=== PATIENT | female | born 1970 | race Two or more races ===

== ENCOUNTER 2017-03-03 17:34 | Emergency (ER) | payer OTHER ==
[2017-03-03 17:46] VITALS: BP 132/85
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
[2017-03-03] MEDS ORDERED: CYCLOBENZAPRINE HCL 10 MG TABLET PO ONE (18:38)
[2017-03-03] MEDS ORDERED: IBUPROFEN 800 MG TABLET PO ONE (18:38)
== END 2017-03-03 19:29 | disposition home or self-care (01) ==
LOC: ER 17:34
DX: M79.605 Pain in left leg (principal); V87.7XXA Person injured in collision between other specified motor vehicles (traffic), initial encounter
CPT/HCPCS: 99283

== ENCOUNTER 2018-01-12 14:20 | Emergency (ER) | payer OTHER ==
[2018-01-12] MEDS ORDERED: ONDANSETRON ODT 4 MG TAB (6 TAB/ER DISP) PO PRN (15:09)
--- NOTE | 2018-01-12 15:11 | ER Document Report ---
ED GI/ - General Chief Complaint: Abdominal Pain Stated Complaint: ABDOMINAL PAIN Time Seen by Provider: 01/12/18 15:07 Notes: Chief complaint: abdominal pain: History of complain:( obtained from----patient) 47 years old female presents today with mid abdominal pain for the last couple of days associated with nausea and vomited a few times and had watery brown stool on and off. But has a history of constipation 2. She did not have any menstrual cycle for the last 2 months. With a history of fibroids. Denies any dysuria frequency urgency. Denies any other constitutional symptoms Onset: As above Duration: As above Severity: Mild to moderate Quality: Dull Context: As above Exacerbating factor and relieving factors: As above REVIEW OF SYSTEMS: CONSTITUTIONAL : Denies fever, chills, or sweats. Denies recent illness. EENT: Denies eye, ear, throat, or mouth pain or symptoms. Denies nasal or sinus congestion or discharge. Denies throat, tongue, or mouth swelling or difficulty swallowing. CARDIOVASCULAR: Denies chest pain. Denies palpitations or racing or irregular heart beat. Denies ankle edema. RESPIRATORY: Denies cough, cold, or chest congestion. Denies shortness of breath, difficulty breathing, or wheezing. GASTROINTESTINAL: Denies distention. Denies nausea, vomiting, or diarrhea. Denies blood in vomitus, stools, or per rectum. Denies black, tarry stools. Denies constipation. GENITOURINARY: Denies difficulty urinating, painful urination, burning, frequency, blood in urine, or discharge. FEMALE GENITOURINARY: Denies vaginal bleeding, heavy or abnormal periods, irregular periods. Denies vaginal discharge or odor. MUSCULOSKELETAL: Denies back or neck pain or stiffness. Denies joint pain or swelling. SKIN: Denies rash, lesions or sores. HEMATOLOGIC : Denies easy bruising or bleeding. LYMPHATIC: Denies swollen, enlarged glands. NEUROLOGICAL: Denies confusion or altered mental status. Denies passing out or loss of consciousness. Denies dizziness or lightheadedness. Denies headache. Denies weakness or paralysis or loss of use of either side. Denies problems with gait or speech. Denies sensory loss, numbness, or tingling. Denies seizures. PSYCHIATRIC: Denies anxiety or stress. Denies depression, suicidal ideation, or homicidal ideation. ALL OTHER SYSTEMS REVIEWED AND NEGATIVE. PHYSICAL EXAMINATION: GENERAL: Well-appearing, well-nourished and in no acute distress. HEAD: Atraumatic, normocephalic. EYES: Pupils equal round and reactive to light, extraocular movements intact, conjunctiva are normal. ENT: Nares patent, oropharynx clear without exudates. Moist mucous membranes. NECK: Normal range of motion, supple without lymphadenopathy LUNGS: Breath sounds clear to auscultation bilaterally and equal. No wheezes rales or rhonchi. HEART: Regular rate and rhythm without murmurs ABDOMEN: Soft, nontender, nondistended abdomen. No guarding, no rebound. No masses appreciated. Female : deferred Musculoskeletal: Normal range of motion, no pitting or edema. No cyanosis. NEUROLOGICAL: Cranial nerves grossly intact. Normal speech, normal gait. Normal sensory, motor exams PSYCH: Normal mood, normal affect. SKIN: Warm, Dry, normal turgor, no rashes or lesions noted. Dictation was performed using [employer] voice recognition software TRAVEL OUTSIDE OF THE [place] IN LAST 30 DAYS: No - HPI Notes: 01/12/18 15:11 Dictated - Related Data Allergies/Adverse Reactions: No Known Allergies Allergy (Verified 01/12/18 14:21) Past Medical History - General Information source: Patient - Social History Smoking Status: Former Smoker Chew tobacco use (# tins/day): No Frequency of alcohol use: None Drug Abuse: None Family History: Reviewed & Not Pertinent Patient has suicidal ideation: No Patient has homicidal ideation: No Renal/ Medical History: Denies: Hx Peritoneal Dialysis Review of Systems - Review of Systems Notes: Dictated Physical Exam - Vital signs Vitals: Temp Pulse Resp BP Pulse Ox 98.5 F 86 16 137/81 H 97 01/12/18 14:40 01/12/18 14:40 01/12/18 14:40 01/12/18 14:40 01/12/18 14:40 - Notes Notes: Dictated Course - Vital Signs Vital signs: Temp Pulse Resp BP Pulse Ox 98.5 F 86 16 137/81 H 97 01/12/18 14:40 01/12/18 14:40 01/12/18 14:40 01/12/18 14:40 01/12/18 14:40 - Laboratory Result Diagrams: 01/12/18 16:00 01/12/18 16:00 Laboratory results interpreted by me: 01/12/18 01/12/18 01/12/18 15:38 16:00 16:00 RDW 15.4 H Est GFR (Non-Af Amer) 53 L Urine Nitrite POSITIVE H Discharge - Discharge Clinical Impression: Constipation by delayed colonic transit UTI (urinary tract infection) Qualifiers: Urinary tract infection type: acute cystitis Hematuria presence: without hematuria Qualified Code(s): N30.00 - Acute cystitis without hematuria Condition: Fair Disposition: HOME, SELF-CARE Instructions: Abdominal Pain ([facility]), Constipation ([facility]), Urinary Tract Infection ([facility]) Prescriptions: Ketorolac Tromethamine [Toradol 10 mg Tablet] 10 mg PO Q6HP PRN #14 tablet PRN Reason: Lactulose 20 gm PO DAILY #200 ml Sulfamethoxazole/Trimethoprim [Bactrim Ds Tablet] 1 each PO BID #20 tablet
[2018-01-12 16:29] LABS: APPEARANCE,URINE CLOUDY; BILIRUBIN,URINE NEGATIVE (NEGATIVE); COLOR,URINE YELLOW; GLUCOSE, URINE NEGATIVE (NEGATIVE); KETONES,URINE NEGATIVE (NEGATIVE); LEUKOCYTE ESTERASE,URINE NEGATIVE (NEGATIVE); NITRITE,URINE POSITIVE (NEGATIVE); PROTEIN,URINE NEGATIVE (NEGATIVE); URINE SPECIFIC GRAVITY 1.026; UROBILINOGEN,URINE NEGATIVE mg/dL (<2.0)
[2018-01-12 16:40] LABS: URINE AMPHETAMINES SCREEN NEGATIVE; URINE BARBITURATES SCREEN NEGATIVE; URINE BENZODIAZEPINES SCREEN NEGATIVE; URINE COCAINE SCREEN NEGATIVE; URINE MARIJUANA (THC) SCREEN NEGATIVE; URINE METHADONE SCREEN NEGATIVE; URINE PHENCYCLIDINE SCREEN NEGATIVE
[2018-01-12 16:44] LABS: ABSOLUTE EOSINOPHILS # (AUTO) 0.1 10^3/uL (0.0-0.6); ABSOLUTE LYMPHOCYTES (AUTO) 1.8 10^3/uL (0.5-4.7); ABSOLUTE MONOCYTES (AUTO) 0.5 10^3/uL (0.1-1.4); ABSOLUTE NEUT (AUTO) 3.8 10^3/uL (1.7-8.2); BASOPHILS % (AUTO) 0.6 % (0-2); EOSINOPHILS % (AUTO) 1.1 % (0-6); HEMATOCRIT 36.8 % (36.0-47.0); HEMOGLOBIN 12.1 g/dL (12.0-15.5); LYMPHOCYTES % (AUTO) 29.6 % (13-45); MEAN CORPUSCULAR HEMOGLOBIN 28.6 pg (27.0-33.4); MEAN CORPUSCULAR HGB CONC 32.9 g/dL (32.0-36.0); MEAN CORPUSCULAR VOLUME 87 fl (80-97); MONOCYTES % (AUTO) 7.9 % (3-13); PLATELET COUNT 319 10^3/uL (150-450); RED BLOOD COUNT 4.23 10^6/uL (3.72-5.28); RED CELL DISTRIBUTION WIDTH 15.4 % (11.5-14.0); SEGMENTED NEUTROPHILS % (AUTO) 60.8 % (42-78); TOTAL CELLS COUNTED % (AUTO) 100 %; WHITE BLOOD COUNT 6.2 10^3/uL (4.0-10.5)
[2018-01-12 17:08] LABS: ALANINE AMINOTRANSFERASE 20 U/L (9-52); ALBUMIN 4.2 g/dL (3.5-5.0); ALKALINE PHOSPHATASE 81 U/L (38-126); ANION GAP 13 (5-19); ASPARTATE AMINO TRANSFERASE 19 U/L (14-36); BILIRUBIN,DIRECT 0.3 mg/dL (0.0-0.4); BILIRUBIN,TOTAL 0.4 mg/dL (0.2-1.3); BLOOD UREA NITROGEN 16 mg/dL (7-20); CARBON DIOXIDE 27 mmol/L (22-30); CHLORIDE 104 mmol/L (98-107); GLUCOSE 80 mg/dL (75-110); POTASSIUM 4.1 mmol/L (3.6-5.0); SODIUM 143.8 mmol/L (137-145); TOTAL PROTEIN 8.2 g/dL (6.3-8.2)
--- NOTE | 2018-01-12 17:26 | RADIOLOGY REPORT (SQ) ---
EXAM DESCRIPTION: KUB/ABDOMEN (SINGLE VIEW) COMPLETED DATE/TIME: 01/12/2018 5:08 pm REASON FOR STUDY: Abdominal pain COMPARISON: None. NUMBER OF VIEWS: One view. TECHNIQUE: Supine radiographic image of the abdomen acquired. LIMITATIONS: None. FINDINGS: BOWEL GAS PATTERN: Normal bowel gas pattern. No dilated loops. CALCIFICATIONS: No suspicious calcifications. SOFT TISSUES: No gross mass or suggestion of organomegaly. HARDWARE: None in the abdomen. BONES: No acute fracture. No worrisome bone lesions. OTHER: No other significant finding. IMPRESSION: NO RADIOGRAPHIC EVIDENCE FOR ACUTE ABDOMINAL DISEASE. TECHNICAL DOCUMENTATION: JOB ID: [id number] [employer]- All Rights Reserved Reading location - IP/workstation name: [email or web address]
[2018-01-12] MEDS ORDERED: SULFAMETHOXAZOLE/TRIMETHOPRIM 800-160 MG TABLET PO ONE (19:25)
[2018-01-12] MEDS ORDERED: LACTULOSE SYRUP 20 GM/30 ML UDCUP PO ONE (19:25)
[2018-01-12 20:48] VITALS: BP 139/86
== END 2018-01-12 20:40 | disposition home or self-care (01) ==
LOC: ER 14:20
DX: N30.00 Acute cystitis without hematuria (principal); K59.00 Constipation, unspecified; R10.9 Unspecified abdominal pain; R11.2 Nausea with vomiting, unspecified
CPT/HCPCS: 36415; 74018; 80053; 80307; 81001; 81025; 84443; 85025; 99284

== ENCOUNTER 2018-02-09 14:11 | Emergency (ER) | payer OTHER ==
[2018-02-09] MEDS ORDERED: ACETAMINOPHEN 325 MG TABLET PO ONE (14:44)
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
--- NOTE | 2018-02-09 15:11 | RADIOLOGY REPORT (SQ) ---
EXAM DESCRIPTION: SHOULDER RIGHT 2 OR MORE VIEWS COMPLETED DATE/TIME: 02/09/2018 3:00 pm REASON FOR STUDY: right shoulder pain with scapular pain COMPARISON: None. NUMBER OF VIEWS: Three views right shoulder. LIMITATIONS: None. FINDINGS: There is no acute or significant bone, joint or soft tissue abnormality. OTHER: No other significant finding. IMPRESSION: NORMAL STUDY. TECHNICAL DOCUMENTATION: JOB ID: [id number] Reading location - IP/workstation name: [email or web address]
[2018-02-09 16:32] VITALS: BP 129/81
== END 2018-02-09 16:32 | disposition home or self-care (01) ==
LOC: ER 14:11
DX: S49.91XA Unspecified injury of right shoulder and upper arm, initial encounter (principal); R51 Headache; M25.511 Pain in right shoulder; V87.7XXA Person injured in collision between other specified motor vehicles (traffic), initial encounter
CPT/HCPCS: 99283

== ENCOUNTER 2020-06-21 15:06 | Emergency (ER) | payer OTHER ==
[2020-06-21 15:13] VITALS: BP 145/93
--- NOTE | 2020-06-21 15:53 | ER Document Report ---
ED Medical Screen (RME) - General Chief Complaint: General Weakness Stated Complaint: LIGHTHEADED,JAW PAIN,HAIR FALLING OUT Time Seen by Provider: 06/21/20 15:47 Mode of Arrival: Ambulatory Information source: Patient Notes: 49-year-old female patient presents the emergency department chief complaint of right-sided facial and neck pain, abdominal pain, bilateral feet and leg swelling and intermittent palpitations. Patient states she is supposed to be on thyroid medication but has not taken it for several years. She reports she is also been losing her hair, states that a few days ago a large patch of hair came out so she cut all of her hair off. No gross facial or neck swelling noted on exam. I have greeted and performed a rapid initial assessment of this patient. A comprehensive ED assessment and evaluation of the patient, analysis of test results and completion of the medical decision making process will be conducted by additional ED providers. I have specifically instructed the patient or family members with the patient to immediately return to any nursing staff should anything change in the patient's condition or with their chief complaint. TRAVEL OUTSIDE OF THE [place] IN LAST 30 DAYS: No - Related Data Allergies/Adverse Reactions: No Known Allergies Allergy (Verified 02/09/18 14:16) Past Medical History Neurological Medical History: Reports: Hx Cerebrovascular Accident - tia Endocrine Medical History: Reports: Hx Hypothyroidism Renal/ Medical History: Denies: Hx Peritoneal Dialysis Past Surgical History: Reports: Hx Section - x3, Other - Facial surgery - Immunizations Immunizations up to date: Yes Physical Exam - Vital signs Vitals: Temp Pulse Resp BP Pulse Ox 98.0 F 87 16 145/93 H 98 06/21/20 15:11 06/21/20 15:11 06/21/20 15:11 06/21/20 15:11 06/21/20 15:11 Course - Vital Signs Vital signs: Temp Pulse Resp BP Pulse Ox 98.0 F 87 16 145/93 H 98 06/21/20 15:11 06/21/20 15:11 06/21/20 15:11 06/21/20 15:11 06/21/20 15:11
[2020-06-21 16:23] LABS: ABSOLUTE EOSINOPHILS # (AUTO) 0.1 10^3/uL (0.0-0.6); ABSOLUTE LYMPHOCYTES (AUTO) 2.2 10^3/uL (0.5-4.7); ABSOLUTE MONOCYTES (AUTO) 0.6 10^3/uL (0.1-1.4); ABSOLUTE NEUT (AUTO) 3.2 10^3/uL (1.7-8.2); BASOPHILS % (AUTO) 0.6 % (0-2); EOSINOPHILS % (AUTO) 1.8 % (0-6); HEMOGLOBIN 14.1 g/dL (12.0-15.5); LYMPHOCYTES % (AUTO) 35.3 % (13-45); MEAN CORPUSCULAR HEMOGLOBIN 30.6 pg (27.0-33.4); MEAN CORPUSCULAR HGB CONC 34.4 g/dL (32.0-36.0); MEAN CORPUSCULAR VOLUME 89 fl (80-97); MONOCYTES % (AUTO) 9.3 % (3-13); PLATELET COUNT 243 10^3/uL (150-450); RED BLOOD COUNT 4.61 10^6/uL (3.72-5.28); TOTAL CELLS COUNTED % (AUTO) 100 %; WHITE BLOOD COUNT 6.1 10^3/uL (4.0-10.5)
[2020-06-21 16:28] LABS: APPEARANCE,URINE CLEAR; BILIRUBIN,URINE NEGATIVE (NEGATIVE); COLOR,URINE YELLOW; GLUCOSE, URINE NEGATIVE (NEGATIVE); KETONES,URINE NEGATIVE (NEGATIVE); LEUKOCYTE ESTERASE,URINE NEGATIVE (NEGATIVE); NITRITE,URINE POSITIVE (NEGATIVE); PROTEIN,URINE NEGATIVE (NEGATIVE); URINE SPECIFIC GRAVITY 1.015; UROBILINOGEN,URINE NEGATIVE mg/dL (<2.0)
[2020-06-21 16:39] LABS: ALBUMIN 4.4 g/dL (3.5-5.0); ALKALINE PHOSPHATASE 94 U/L (38-126); ANION GAP 6 (5-19); ASPARTATE AMINO TRANSFERASE 31 U/L (14-36); BILIRUBIN,DIRECT 0.2 mg/dL (0.0-0.4); BILIRUBIN,TOTAL 0.5 mg/dL (0.2-1.3); BLOOD UREA NITROGEN 16 mg/dL (7-20); CALCIUM 9.4 mg/dL (8.4-10.2); CARBON DIOXIDE 30 mmol/L (22-30); CHLORIDE 103 mmol/L (98-107); GLUCOSE 78 mg/dL (75-110); POTASSIUM 4.1 mmol/L (3.6-5.0); TOTAL PROTEIN 8.3 g/dL (6.3-8.2)
[2020-06-21 16:56] LABS: FREE T3 3.1 pg/mL (2.77-5.27); FREE T4 (FREE THYROXINE) 0.97 ng/dL (0.78-2.19)
[2020-06-21 17:09] LABS: THYROID STIMULATING HORMONE 4.21 uIU/mL (0.47-4.68)
--- NOTE | 2020-06-21 17:14 | RADIOLOGY REPORT (SQ) ---
EXAM DESCRIPTION: U/S THYROID/SFT TISS HD NECK IMAGES COMPLETED DATE/TIME: 06/21/2020 5:01 pm REASON FOR STUDY: PAIN R NECK/EVAL THYROID COMPARISON: None. TECHNIQUE: Dynamic and static mandel-scale images acquired of the thyroid gland. Selected additional c olor/power Doppler images recorded. All images stored to PACS. LIMITATIONS: None. FINDINGS: RIGHT LOBE: Normal size, 4.2 cm. Homogeneous echotexture. No cystic or solid masses. LEFT LOBE: Normal size, 3 cm. Homogeneous echotexture. No cystic or solid masses. ISTHMUS: Normal size, 3 mm. Homogeneous echotexture. No cystic or solid masses. OTHER: There is a 6 mm lymph node in the right side of the neck. IMPRESSION: NORMAL THYROID ULTRASOUND. TECHNICAL DOCUMENTATION: JOB ID: [id number] 2010 [employer]- All Rights Reserved Reading location - IP/workstation name: [email or web address]
--- NOTE | 2020-06-21 19:22 | EKG REPORT ---
SEVERITY:- NORMAL ECG - SINUS RHYTHM : Confirmed by: Vita Stewart MD 21-Jun-2020 19:19:58
[2020-06-21] MEDS ORDERED: CEPHALEXIN 500 MG CAPSULE PO ONE (20:03)
--- NOTE | 2020-06-21 20:07 | ER Document Report ---
ED General - General Chief Complaint: Neck Pain >24hrs old Stated Complaint: LIGHTHEADED,JAW PAIN,HAIR FALLING OUT Time Seen by Provider: 06/21/20 15:47 Mode of Arrival: Ambulatory TRAVEL OUTSIDE OF THE [place] IN LAST 30 DAYS: No - HPI Patient complains to provider of: Patient Notes: Patient is a 49-year-old female who presents with multiple complaints. She states that she has noticed for the past several weeks that her hair has been thinning and falling out. Patient mentions she has some pain under her right jaw. It is worse with palpation. She also mentions that she has had off-and-on bilateral leg swelling. Patient is unsure what the symptoms are from. She has regular bowel movements. She denies any dysuria. No fevers or chills. No cou gh or cold symptoms. She states she occasionally feels some bloating. Patient has been eating normally. She does mention that she was on a hyperthyroid medication but stopped it a long time ago because she did not think she needed it anymore. She does not have a PCP currently. She is not taking any medications. - Related Data Allergies/Adverse Reactions: No Known Allergies Allergy (Verified 02/09/18 14:16) Past Medical History - General Information source: Patient - Social History Smoking Status: Never Smoker Family History: Reviewed & Not Pertinent Neurological Medical History: Reports: Hx Cerebrovascular Accident - tia Endocrine Medical History: Reports: Hx Hypothyroidism Renal/ Medical History: Denies: Hx Peritoneal Dialysis Past Surgical History: Reports: Hx Section - x3, Other - Facial surgery - Immunizations Immunizations up to date: Yes Review of Systems - Review of Systems Notes: CONSTITUTIONAL: No fever, fatigue or weight loss. Positive for weight gain. SKIN: No rash. HENT: No congestion, ear pain, or sore throat. EYES: No recent vision problems or eye pain. ENDOCRINE: History of hyperthyroidism. CARDIOVASCULAR: No chest pain or edema. RESPIRATORY: No cough, shortness of breath, congestion, or wheezing. GASTROINTESTINAL: No abdominal pain, nausea, vomiting, bloody stools or diarrhea. GENITOURINARY: No dysuria. Frequency of urination. MUSCULOSKELETAL: No joint pain or swelling. NEUROLOGIC: No seizures. No headache, focal weakness or sensory changes. HEMATOLOGIC: No unusual bruising or bleeding. PSYCHIATRIC: No depression or anxiety. Physical Exam - Vital signs Vitals: Temp Pulse Resp BP Pulse Ox 98.0 F 87 16 145/93 H 98 06/21/20 15:11 06/21/20 15:11 06/21/20 15:11 06/21/20 15:11 06/21/20 15:11 - General General appearance: Appears well In distress: None Notes: VITAL SIGNS: Within normal limits. GENERAL: No acute distress, non-toxic appearance. HEAD: Normal with no signs of head trauma. EYES: Conjunctiva normal, no discharge. EARS: Hearing grossly intact. NECK: Normal range of motion, supple. Discomfort to right cervical node. No lymphadenopathy. No oral abscess. No dental abscess. No rash. CHEST: Clear breath sounds bilaterally. No wheezes, rales, or rhonchi. CARDIAC: Regular rate and rhythm. VASCULAR: No swelling to lower extremities. ABDOMEN: Normal and soft with no tenderness, no masses or pulsatile masses. MUSCULOSKELETAL: Good range of motion of all major joints. Extremities without clubbing, cyanosis or edema. NEUROLOGICAL: Alert and oriented x 3. No focal sensory or strength deficits. Speech normal. Follows commands appropriately. PSYCHIATRIC: Normal Affect, judgement and mood. SKIN: Normal appearance with no rashes or lesions. Course - Re-evaluation Re-evalutation: 06/21/20 21:38 Patient stated that she wanted to leave from the ED prior to evaluation as she has been waiting too long. Nursing staff asked me to see her. I went over all results with the patient. Her TSH and thyroid testing is normal. I do not see any obvious abscess to her right neck where she is having discomfort. Patient did not want me take a look at her hair because she was wearing a hat. I did have a long discussion with the patient about how she needs to follow-up in the office. She states she does not have insurance. I did refer her to the [facility]. I also told patient that she has evidence of a UTI and she states she has had this before. I will put her on Keflex. I stressed the importance of follow-up as she will need to have her medication restarted and more work-up of her symptoms. Patient is very agreeable to this. She is in no acute distress. She is eating in the room. She was given strict return precau tions. - Vital Signs Vital signs: Temp Pulse Resp BP Pulse Ox 98.0 F 87 16 145/93 H 98 06/21/20 15:11 06/21/20 15:11 06/21/20 15:11 06/21/20 15:11 06/21/20 15:11 - Laboratory Results Result Diagrams: 06/21/20 16:10 06/21/20 16:10 Laboratory Results Interpreted: 06/21/20 06/21/20 16:10 16:15 Total Protein 8.3 H Urine Nitrite POSITIVE H Critical Laboratory Results Reviewed: No Critical Results - Radiology Results Critical Radiology Results Reviewed: No Critical Results Discharge - Discharge Clinical Impression: Lightheaded Urinary tract infection Qualifiers: Urinary tract infection type: site unspecified Hematuria presence: without hematuria Qualified Code(s): N39.0 - Urinary tract infection, site not specified Condition: Stable Disposition: HOME, SELF-CARE Instructions: Urinary Tract Infection ([facility]) Additional Instructions: Your work-up today is reassuring. Please call the PCP first thing tomorrow morning for an appointment as you will need follow-up and be started back on her regular medications. Please return to the ER immediately for any worsening symptoms. Prescriptions: Cephalexin Monohydrate [Keflex 500 mg Capsule] 500 mg PO BID 7 Days #14 capsule
== END 2020-06-21 20:21 | disposition home or self-care (01) ==
LOC: ER 15:06
DX: N39.0 Urinary tract infection, site not specified (principal); R42 Dizziness and giddiness; M54.2 Cervicalgia; R68.84 Jaw pain; L65.9 Nonscarring hair loss, unspecified; M79.89 Other specified soft tissue disorders; R14.0 Abdominal distension (gaseous); Z79.899 Other long term (current) drug therapy
CPT/HCPCS: 36415; 76536; 80053; 81001; 84439; 84443; 84481; 85025; 93005; 93010; 99285